=== PATIENT | female | born 1995 | race Caucasian/White ===

== ENCOUNTER 2018-04-21 23:08 | Emergency (ER) | payer OTHER ==
--- NOTE | 2018-04-21 23:16 | EDPHY ---
General - History Smoking Status: Never smoked Time Seen by Provider: 04/21/18 23:15 Narrative: CLINICAL IMPRESSION: Acute alcohol intoxication, head injury ASSESSMENT/PLAN: Patient is a 23-year-old female with a history of attention deficit hyperactivity disorder who presents to the emergency department with acute alcohol intoxication and head injury with positive LOC. Patient is alert and oriented, well appearing and in no acute distress, complains of mild discomfort at site of impact. She is clinically intoxicated. The fall was witnessed and there was a brief positive loss of consciousness. Her neurological exam is grossly normal with no focal deficit. She has no new focal neurologic deficit, there has been no altered mentation, there are no clinical findings to suggest skull fracture, there is no known bleeding disorder, there has been no vomiting and no posttraumatic seizure. Given the patients history and physical, we feel prolonged observation and re-evaluation when sober is appropriate at this time. On repeat examination the patient complains of pain at the site of impact only. She denies any severe headache, dizziness, visual changes or vomiting. The patient remained hemodynamically stable under my care, her neurological exam remained grossly normal with no focal deficit. Dr. Hernandez will resume care of this patient at this time. DIFFERENTIAL DX: Head injury including but not limited to concussion, skull fracture, intraparenchymal contusion, subarachnoid, subdural and epidural hematoma. ED COURSE: 2330: Discussed with Dr. Hernandez 0128: On repeat examination, the patient is well-appearing sitting up in bed. She is alert and oriented. She complains of mild pain at the site of impact on her right head. Her neurological exam remained grossly normal with no focal deficit. 0130: Case reviewed with Dr. Hernandez the who will resume care of this patient at this time. CHIEF COMPLAINT: Head injury, acute alcohol intoxication HPI: Patient is a 23-year-old female with a significant history of attention deficit hyperactivity disorder who presents to the emergency department with acute alcohol intoxication and head injury. Patient was walking on the ice with friends, she slipped causing her to fall hitting her head on a nearby car. There was a loss of consciousness witnessed by her friends, unknown duration however short period of time they feel. Patient came to and has been acting appropriately since the incident. Patient complains of pain at the site of impact only, denies any headache, dizziness, visual changes or focal weakness. She denies any neck pain or back pain. She endorses several hours of drinking a mix of vodka and Tequila. Patient is acting appropriately per her friends. There has been no amnesia, vomiting or posttraumatic seizure. She is not on aspirin, other antiplatelet or anticoagulation. She has no known bleeding disorder. PMH: Attention deficit hyperactivity disorder Pertinent Past Surgical History: Denies Family History: Noncontributory Social History: Occasional alcohol, denies illicit drug use and denies cigarette smoking REVIEW OF SYSTEMS: All other systems negative Constitutional: No fever, no chills, appetite change. Eyes: No discharge, vision change ENT: No sore throat, congestion, ear pain. Cardiovascular: No chest pain, no palpitations. Respiratory: No cough, no shortness of breath. Gastrointestinal: No abdominal pain, no vomiting, diarrhea. Genitourinary: No hematuria, dysuria, flank pain, pelvic pain Musculoskeletal: No back pain, joint swelling, joint pain, myalgias. Skin: No rashes, color change. Neurological: Head pain. No dizziness, weakness. PHYSICAL EXAM: General Appearance: Patient appears intoxicated, smells of alcohol. She is well-developed and not toxic-appearing. She is smiling, answers questions appropriately. HENT: Normocephalic, atraumatic. Patient with mild tenderness to palpation over the right parietal region without ecchymosis, abrasions or crepitus. Bilateral external ears are normal. Bilateral tympanic membranes are normal with pearly sanz reflex- no evidence of hemotympanum bilaterally. No Bob sign or raccoon eyes. Nares are clear, mucosa is pink. Oropharynx is clear, uvula is midline. There is no tonsillar enlargement or exudate. The dentition is normal. Eyes: PERRLA, EOMI intact without evidence of entrapment. Conjunctiva pink, no pallor or injection Neck: Supple, nontender, no lymphadenopathy, no midline pain, FROM, no meningismus. Respiratory: There are no retractions, lungs are clear to auscultation. Cardiac: Regular rate and rhythm, no murmurs or gallops. Gastrointestinal: Abdomen is soft, nontender, bowel sounds normal, no masses/ hernia, no rigidity, guarding or focal peritoneal findings. Neurological: Alert and oriented x 3, CN 2-12 grossly intact, normal gait no ataxia, DTR's intact, normal sensation and strength Skin: Warm, dry, no rashes, no nodules on palpation. Musculoskeletal: Extremities are symmetrical, full range of motion, no tenderness, deformity, swelling, or erythema. Psychiatric: Patient is oriented X 3, there is no agitation. MEDICAL DECISION MAKING: Patient was seen independently. Secondary supervising physician at time of evaluation was Dr. Hernandez, she also evaluated this patient. Diagnosis: Head injury, acute alcohol intoxication. New, requires workup Summary: See Assessment and Plan for summary of ED visit Clinical lab tests: Not applicable. Independent visualization of images, tracing, or specimens: Not applicable. Decision to obtain medical records or history from someone other than the patient: Yes, friends/witnesses Review / Summarize previous medical records: Yes Discussed patient with another provider: Yes, Dr. Hernandez Patient Progress: Stable, dispo pending. (Ileana Lee) I evaluated the patient myself. She was awake and alert with a normal neurologic exam after about 5 hr in the ER. She will be discharged home with sober friends. I do not think she needs CT scan of her head at this time. (Tran Hernandez) - Objective Vital Signs: Initial Vital Signs Temperature (C) 36.5 C 04/21/18 23:12 Heart Rate 99 04/21/18 23:12 Respiratory Rate 16 04/21/18 23:12 Blood Pressure 102/84 H 04/21/18 23:12 O2 Sat (%) 96 04/21/18 23:12 O2 Delivery Mode Room Air Allergies/Adverse Reactions: benzoyl peroxide Allergy (Verified 01/14/16 23:14) Home Medications: Medication Instructions Recorded VYVAIXA 01/14/16 Medications Given: Discontinued Medications Ibuprofen (Motrin) 600 mg PO EDNOW ONE Stop: 04/22/18 01:06 Last Admin: 04/22/18 01:10 Dose: 600 mg Departure - Departure Disposition: Home, Routine, Self-Care Clinical Impression: Alcohol intoxication Qualifiers: Complication of substance-induced condition: uncomplicated Qualified Code(s): F10.920 - Alcohol use, unspecified with intoxication, uncomplicated Head injury Qualifiers: Encounter type: initial encounter Qualified Code(s): S09.90XA - Unspecified injury of head, initial encounter Condition: Good Instructions: Head Injury (ED), Alcohol Intoxication (ED) Additional Instructions: DISCHARGE INSTRUCTIONS FROM YOUR DOCTOR Thank you for visiting our emergency department today. Please keep in mind that discharge from the emergency department does not mean that there is nothing wrong - it simply means that we have not identified an emergency condition that requires further evaluation or treatment in the hospital. You should always plan to follow up with primary care for re-evaluation of your condition in the next 2-3 days. Please establish care if you have not done so already. If you have been referred to a specialist, please call as soon as possible ( today or tomorrow) to schedule your follow up appointment at the appropriate time. For pain control: You may take Tylenol, I recommend 500-1000 mg every 6-8 hours as needed. Take with food and a full glass of water. Stop taking if this is upsetting her stomach. Do not exceed 4000 mg in a 24 hr period. You may also take ibuprofen, recommend 400 mg every 6 hr. Take with food and a full glass of water. Stop taking if this upsets her stomach. Do not exceed 2400 mg in a 24 hr period. GRADUAL SELHUB-FB-SADZ PROTOCOL Patient must be symptom free for 24 hours before progressing to the next step. If patient has symptoms during Step's 2-6, stop activity and return previous step. Patient can not progress to next step unless current step can be completed with out any symptoms (ie headache, dizziness, confusion...) Bright lights, TV, computers, music, reading can trigger or worsen concussion symptoms thus should be avoided or used in moderation. Step 1. NO same day return to play, rest only , do not proceed to Step 2 until all symptoms have resolved Step 2. LIGHT aerobic exercise (ie walking, swimming or stationary cycling), while keeping intensity < 70% max heart rate Step 3. Sport-specific exercise (ie skating drills in ice hockey-no passing, running drills in soccer-no passing), NO HEAD IMPACT ACTIVITIES Step 4. NON-contact training, with progression to more complex drills (ie passing drills) NO HEAD IMPACT ACTIVITIES Step 5. Full-contact practice AFTER getting medical clearance Step 6. Return to game play This was based from: Consensus statement on concussion in sport: the 4th International Conference on Concussion in Sport held in [place] 2011. Br J Sports MEd. 2013;47(5):250- 258 People present with illnesses and injuries in different ways, and it is always possible that we have missed something. You may always return for re-evaluation if symptoms worsen or if they are not improving or if you develop new/different symptoms. Again, thank you for choosing our emergency department. We hope that you feel better. Referrals: Shelley Lomas MD [[facility] [place] Primary Care Provider] - 2-3 days, if not improved Jing Morse MD [Medical Doctor] - As per Instructions (Should you have prolonged symptoms of concussion, please follow-up with Dr. Morse for further evaluation.)
[2018-04-22] MEDS ORDERED: IBUPROFEN 600 MG TAB PO ONE (01:05)
[2018-04-22 04:37] VITALS: BP 122/65
== END 2018-04-22 04:35 | disposition home or self-care (01) ==
DX: S09.90XA Unspecified injury of head, initial encounter (principal); F10.920 Alcohol use, unspecified with intoxication, uncomplicated; F90.9 Attention-deficit hyperactivity disorder, unspecified type; W00.0XXA Fall on same level due to ice and snow, initial encounter; Y93.01 Activity, walking, marching and hiking; Y92.480 Sidewalk as the place of occurrence of the external cause